=== PATIENT | female | born 1990 | race Caucasian/White ===

== ENCOUNTER → 2018-05-07 11:13 | Outpatient (CLI) | payer OTHER, SELFPAY ==
[2018-05-07 17:41] LABS: Urine N gonorrhoeae NOT DETECTED
[2018-05-07 17:47] LABS: Urine Chlamydia NOT DETECTED
[2018-05-08 18:27] LABS: Strep Grp B PCR NEG for Grp B Strep
== END ==
DX: Z34.03 Encounter for supervision of normal first pregnancy, third trimester (principal); Z3A.35 35 weeks gestation of pregnancy
CPT/HCPCS: 87491; 87591; 87653

== ENCOUNTER 2018-06-07 04:13 | Observation (INO) | payer OTHER, SELFPAY ==
--- NOTE | 2018-06-07 07:53 | PM.OBTRLD ---
Visit Information Visit Information Date of evaluation: 06/07/18 Primary OB Provider: Stephan Hinkle On-call OB Provider: Chayito Dominguez Reason for Evaluation: Yes rule out labor Vital Signs Vital Signs: 129/73, pulse 61, temperature 98? Evaluation Evaluation Baseline heart rate: 120 Variability: Moderate (11-25) monitor accelerations: Present monitor decelerations: Absent Contraction Frequency (minutes): 4 Uterine Contraction Intensity: Moderate Category of Tracing: I Cervical dilation (cm): 2 Cervical effacement (%): 80 station: -1 Diagnosis, Plan/Disposition Final Diagnosis (1) 40 weeks gestation of : Current Visit: No Status: Acute Plan/Disposition Plan: Patient had no change in her cervix despite walking and continued monitoring. She was discharged home with precautions.
== END 2018-06-07 08:00 | disposition home or self-care (01) ==
PROVIDERS: Admitting Provider Specialist; Visit Provider Specialist
DX: Z34.83 Encounter for supervision of other normal pregnancy, third trimester (principal); Z3A.40 40 weeks gestation of pregnancy
CPT/HCPCS: 59025; 59050; G0378; G0379

== ENCOUNTER 2018-06-08 00:31 | Inpatient (IN) | payer OTHER, SELFPAY ==
[2018-06-08] MEDS: LACTATED RINGERS 1,000 ML 100 ML IV (01:00)
[2018-06-08 01:30] LABS: Add Manual Diff / Slide Review NO; Basophils Percent Auto 0.8 % (0-2); Eosinophils Percent Auto 2.5 % (2-4); Hematocrit 37.9 % (36-46); Hemoglobin 13.2 g/dL (12.0-16.0); Lymphocytes Percent Auto 30.2 % (25-40); Mean Corpuscular HGB Conc 34.7 % (30-36); Mean Corpuscular Hemoglobin 30.6 PG (26-34); Mean Corpuscular Volume 88.2 fL (80-100); Monocytes Percent Auto 6.6 % (3-14); Neutrophils Absolute Auto 7700 /uL (3000-5900); Neutrophils Percent Auto 59.9 % (50-75); Platelet Count 215 X10^3/uL (150-400); Red Cell Distribution Width 12.7 % (11.6-14.8); White Blood Cell Count 12.9 X10^3/uL (4.5-11.0)
[2018-06-08 02:47] VITALS: BP 134/84
--- NOTE | 2018-06-08 07:31 | P.HPOB_ITS ---
OB HPI Date/Time Date of admission: 06/08/18 Date Patient Seen: 06/08/18 Time Patient Seen: 05:30 History of Present Condition Chief complaint: Observation of labor : 2 Para: 0 Estimated Date of Delivery: 06/05/18 Estimated Gestational Age (weeks): 40w3d Narrative: Diana Clarke is a 27 year old at 40w3d who presented in active labor with SROM at home. Pt reports having a gush of clear fluid at 11: 30pm the night before. She had been vicki for several days, but they increased significantly in intensity after that. She denies significant vaginal bleeding. History of Present care: good care Dating criteria: LMP confirmed by 1st trimester US Ultrasounds: normal mid trimester US Obstetrical complications: none Medical complications: none Preadmission Labs Blood type: O (+) positive -: Antibody screen: negative, GBS status: negative, HBsAG: negative, HIV: negative and RPR/VDLR: negative -: Chlamydia screen: detected (neg RUSS and neg 3rd tri screening) and Gonorrhea screen: not detected -: Rubella: immune and Varicella: immune HCT: 36.5 HCAB: negative Quad screen: Normal 1 hr GTT: 190 3 hr GTT: 1 hr (133), 2 hr (99) and 3 hr (128) Prior (ies) History: 2018 with SAB at 8wks Evaluation Evaluation Baseline heart rate: 120 Variability: Moderate (11-25) monitor accelerations: Present monitor decelerations: Early Contraction Frequency (minutes): 3 Uterine Contraction Intensity: Strong/Firm Category of Tracing: I Cervical dilation (cm): 4 Cervical effacement (%): 90 station: +1 Laboratory results: Laboratory Tests 06/08/18 06/08/18 01:11 01:11 WBC 12.9 H RBC 4.30 Hgb 13.2 Hct 37.9 MCV 88.2 MCH 30.6 MCHC 34.7 RDW 12.7 Plt Count 215 Neut % (Auto) 59.9 Lymph % (Auto) 30.2 [place] % (Auto) 6.6 Eos % (Auto) 2.5 Baso % (Auto) 0.8 Neut # (Auto) 7700 H Blood Type O Positive Antibody Screen Negative Meds Home Medications Medication Instructions Recorded Confirmed Type Biotin 100+10 06/08/18 History Biotin 100+10 100 mg/day DAILY 06/08/18 06/08/18 History cetirizine [Zyrtec] 10 mg PO DAILY 06/08/18 06/08/18 History vit D3-vit [id number] 06/08/18 History Allergies Allergy/AdvReac Type Severity Reaction Status Date / Time nickel Allergy Verified 06/07/18 05:28 Exam Vital Signs (past 8 hours): - 06/08/18 02:47 Blood Pressure 134/84 Narrative Exam Narrative: Gen: NAD, laying comfortably in bed, appears well CV: RRR, no murmurs Resp: clear to auscultation bilaterally Abd: soft, gravid, nondistended Ext: no edema Objective Labs Result Diagrams: 06/08/18 01:11 Labs: Laboratory Results - last 24 hr 06/08/18 06/08/18 01:11 01:11 WBC 12.9 H RBC 4.30 Hgb 13.2 Hct 37.9 MCV 88.2 MCH 30.6 MCHC 34.7 RDW 12.7 Plt Count 215 Neut % (Auto) 59.9 Lymph % (Auto) 30.2 [place] % (Auto) 6.6 Eos % (Auto) 2.5 Baso % (Auto) 0.8 Neut # (Auto) 7700 H Blood Type O Positive Antibody Screen Negative Assessment and Plan (1) 40 weeks gestation of : Current visit: Yes Status: Acute Plan: Plan: 27yo at 40w3d who presented in active labor with SROM. GBS negative, Rh positive. - Expectant management, anticipate - GBS negative, no prophylaxis - FHT reassuring, with intermittent early decels - Epidural for pain control
--- NOTE | 2018-06-08 18:21 | PM.OBPRVD ---
Delivery date: 06/08/18 Induction method: none Delivery monitor: external FHT Route of delivery: vacuum extraction Indication for instrumentation: nonreassuring FHR tracing Episiotomy description: None Laceration description: None Estimated blood loss (mL): 400 Anesthesia type: Epidural Complications: None Narrative: PROCEDURE: at 40w3d presented in active labor with SROM and clear fluid and was admitted to Labor and Delivery. The patient progressed through the 1st stage over 6.5 hours. Pain was controlled with an epidural. At the end of the first stage, the pt had repetitive prolonged decelerations to the 90s that improved with position changes and maternal oxygen. The patient progressed through the 2nd stage over 1hr 20 minutes. Due to recurrent prolonged decelerations to the 70s at the end of the 2nd stage, with slowing return to baseline, the decision was made to proceed with a vacuum-assisted vaginal delivery. Patient was evaluated and noted to have adequate pain control. Patient counseled on risks/benefits/alternatives of vacuum assisted delivery. Risks were discussed and they included but were not limited to a need for an episiotomy, pressure knight on the baby, lacerations to the baby's scalp/face, serious damage including skull fracture, the need to proceed with an abdominal procedure, , paralysis of the baby's arms and/or legs, neurological impairment of the baby. Alternatives would include CS or further observation depending on status. Questions were answered and the patient verbalized an understanding and decided to proceed. The baby was at +3 station. Cervix completely dilated and maternal bladder emptied. Maternal pelvis was noted to be adequate. Vacuum cup of the [employer] applied to the flexion point without difficulty and during contractions, pressure applied between 400-600 mmHg as indicated in the green zone of the pressure gauge. Infant delivered after 2 pulls with 0 pop-offs over an intact perineum. The anterior shoulder and remainder of the was delivered without difficulty. Immediately after the baby delivered, multiple large clots were produced, indicating a likely partial placental abruption. There was no nuchal cord present. was placed on maternal abdomen with spontaneous crying. Cord clamped and cut after it stopped pulsing. Infant was examined and no evidence of injury noted. APGARs of 8/9. There were no lacerations. Delivery time: 7:15am PREPROCEDURE DIAGNOSIS: Intrauterine at 40w3d GBS negative RH positive POSTPROCEDURE DIAGNOSIS: Intrauterine at 40w3d, delivered Same as preprocedure Nonreassuring heart tones Vacuum-assisted Partial placental abruption ROM APPEARANCE: Clear BABY A WEIGHT: 7lb0.31oz BABY A NUCHAL CORD: None PLACENTA DELIVERY TIME: 7:17 PLACENTA APPEARANCE: Intact [place] Baby 1: gender: Male Presentation: vertex position: Right Occiput Anterior Placenta delivery description: Spontaneous cord vessel description: 3 Vessels score (1 min): 8 score (5 min): 9 Plan for aftercare: Normal care support
[2018-06-08] MEDS: IBUPROFEN 600 MG TABLET PO (19:06)
[2018-06-08 20:15] VITALS: TEMP 36.8
[2018-06-09 04:47] VITALS: TEMP 37
[2018-06-09] MEDS: IBUPROFEN 600 MG TABLET PO (04:47)
[2018-06-09 05:10] LABS: Hematocrit 34.9 % (36-46); Hemoglobin 12.1 g/dL (12.0-16.0)
[2018-06-09] MEDS: PRENATAL VIT,CALC/IRON/FOLIC 1 TABLET 1 TAB PO (10:06)
[2018-06-09] MEDS: DOCUSATE 250 MG CAPSULE PO (10:07)
--- NOTE | 2018-06-09 11:24 | P.DS_ITS ---
Discharge Providers Date of admission: 06/08/18 00:31 Primary care physician: Stephan Hinkle MD Consults: 06/08/18 07:48 Consult to Cogeneration Operator Routine Comment: Discharge provider: Lori Oropeza MD Discharge Date: 06/09/18 Summary Date Patient Seen: 06/09/18 Time Patient Seen: 11:00 Hospital Course: The pt presented in active labor with SROM. Her pain was controlled with an epidural. The pt had repetitive deep variable decelerations nearing the end of her labor, that initially improved with position changes. Due to progressively slowing return to baseline, the decision was made to have a vacuum-assisted delivery when she was at +3 station. The pt was delivered successfully without complications with vacuum assistance. There was no injury noted to the baby. There were no lacerations. The pt tolerated delivery well. , there were no complications. At the time of discharge she was voiding, ambulating, and passing flatus without difficulty. Her lochia was decreasing appropriately. She was without complications. Her pain was adequately controlled. She will be discharged home to f/u with Dr Hinkle in 6 weeks. She likely desires OCPs for control. Peripartum Data Infant Delivery Method: Assisted Delivery Laceration description: None Episiotomy description: None Procedures: Vacuum-assisted vaginal delivery complications: none Discharge Diagnosis (1) 40 weeks gestation of : Status: Acute (2) Status post vacuum-assisted vaginal delivery: Status: Acute Status at Discharge Functional status at discharge: independent ambulation Overall status at discharge: patient is progressing back to baseline Time Spent with Patient Total time spent providing and/or coordinating discharge services: Greater than 30 minutes Objective Labs Result Diagrams: 06/09/18 04:47 Labs: Laboratory Results - last 24 hr 06/09/18 04:47 Hgb 12.1 Hct 34.9 L Discharge Plan Discharge Plan Patient Disposition: Home Discharge Med Rec/Prescriptions Prescriptions: New acetaminophen 325 mg Tablet 650 mg PO Q6HR PRN (Reason: Pain, Mild (1-3)) Qty: 30 RF: 0 benzocaine-menthol [Dermoplast (with menthol)] 20-0.5 % Aerosol 1 spray Topical Q1HR PRN (Reason: perineal pain) Qty: 15 RF: 0 ibuprofen 600 mg Tablet 600 mg PO Q6HR PRN (Reason: Pain, Mild (1-3)) Qty: 30 RF: 0 docusate sodium 250 mg Capsule 250 mg PO DAILY Qty: 30 RF: 0 lanolin [Ayg-Y-Wearcq] Cream 1 applic Topical PRN PRN (Reason: Tenderness) Qty: 15 RF: 0 vit,[id number] [Prenatabs Rx] 29 mg iron- 1 mg Tablet 1 tab PO DAILY Qty: 30 RF: 0 Continue Biotin 100+10 100 units 100 mg/day DAILY RF: 0 Biotin 100+10 RF: 0 vit D3-vit [id number]-kvhm RF: 0 cetirizine [Zyrtec] 10 mg Capsule 10 mg PO DAILY RF: 0 Follow up/Referrals: Stephan Hinkle MD [Primary Care Provider] - 6 Weeks (Pt will call for appointment) Provider Discharge Instructions Diet: Diet as Tolerated and Regular Activity: No intercourse for 6 weeks Skin/Wound/Dressing Care Report to your healthcare provider any signs of infection, such as:: chills, fever, increased pain and unusual drainage Visit Report/Discharge Packet Instructions: DI for Heart Failure, DI for Labor and Delivery, Vaginal Stand Alone Forms: Discharge: Care Visit Report Forms: Congestive Heart Failure, Stroke Signs & Symptoms Discharge Data Primary Care Provider: Stephan Hinkle Attending Provider: Lori Oropeza Date/Time: 06/08/18 00:31
[2018-06-09 11:34] VITALS: BP 122/76; TEMP 36.8
== END 2018-06-09 12:10 | disposition home or self-care (01) | DRG 807 ==
PROVIDERS: Admitting Provider Family Medicine; Visit Provider Family Medicine
DX: O45.93 Premature separation of placenta, unspecified, third trimester (principal); Z37.0 Single live birth; Z3A.40 40 weeks gestation of pregnancy; O76 Abnormality in fetal heart rate and rhythm complicating labor and delivery
CPT/HCPCS: 01967; 36415; 59050; 59410; 84112; 85014; 85018; 85025; 86850; 86900; 86901; G0379

== ENCOUNTER → 2019-10-10 12:30 | Outpatient (CLI) | payer OTHER, SELFPAY ==
[2019-10-10 14:45] LABS: Hematocrit 39.3 % (36-46); Hemoglobin 12.8 g/dL (12.0-16.0)
[2019-10-10 15:19] LABS: GTT (PREG) 1 Hour PP 50gm Dose 122 mg/dL (76-139)
== END ==
PROVIDERS: PCP General Practice
DX: Z34.82 Encounter for supervision of other normal pregnancy, second trimester (principal); Z3A.26 26 weeks gestation of pregnancy
CPT/HCPCS: 36415; 82950; 85014; 85018

== ENCOUNTER → 2019-12-12 10:54 | Outpatient (CLI) | payer OTHER, SELFPAY ==
[2019-12-13 08:59] LABS: Strep Grp B PCR POS for Grp B Strep
== END ==
PROVIDERS: PCP General Practice
DX: Z34.83 Encounter for supervision of other normal pregnancy, third trimester (principal); Z3A.36 36 weeks gestation of pregnancy
CPT/HCPCS: 87653

== ENCOUNTER 2020-01-13 04:09 | Inpatient (IN) | payer OTHER, SELFPAY ==
[2020-01-13] MEDS: PENICILLIN G POTASSIUM 5,000,000 UNIT in DEXTROSE 5% IN WATER 250 ML IV (05:34)
[2020-01-13] MEDS: LACTATED RINGERS 1,000 ML 100 ML IV ×2 (05:34→09:25)
[2020-01-13 06:51] LABS: Add Manual Diff / Slide Review NO; Basophils Absolute Auto 100 /uL (0-100); Basophils Percent Auto 0.3 % (0-2); Eosinophils Absolute Auto 100 /uL (0-450); Eosinophils Percent Auto 0.8 % (2-4); Hematocrit 39.9 % (36-46); Hemoglobin 13.5 g/dL (12.0-16.0); Lymphocytes Absolute Auto 3000 /uL (1100-4500); Lymphocytes Percent Auto 16.5 % (25-40); Mean Corpuscular HGB Conc 33.8 % (30-36); Mean Corpuscular Hemoglobin 30.3 PG (26-34); Mean Corpuscular Volume 89.7 fL (80-100); Monocytes Absolute Auto 900 /uL (0-900); Monocytes Percent Auto 5.1 % (3-14); Neutrophils Absolute Auto 13900 /uL (1500-7000); Neutrophils Percent Auto 77.3 % (50-75); Platelet Count 224 X10^3/uL (150-400); Red Blood Cell Count 4.44 X10^6/uL (4.0-5.2); Red Cell Distribution Width 12.9 % (11.6-14.8); White Blood Cell Count 17.9 X10^3/uL (4.5-11.0)
[2020-01-13 07:16] LABS: COVID19 -Nasal RAPID Negative (Negative)
--- NOTE | 2020-01-13 08:27 | P.HPOB_ITS ---
OB HPI Date/Time Date of admission: 01/13/20 Date Patient Seen: 01/13/20 Time Patient Seen: 08:28 History of Present Condition Chief complaint: Evaluation of Labor : 2 Para: 1 Estimated Date of Delivery: 01/08/20 Estimated Gestational Age (weeks): 40 09/12 Narrative: Diana Clarke is a 29 year old female two para one who presented in active labor. Her YESENIA was January 07 she was scheduled for induction on the 12 January. Her antepartum course was uneventful. History of Present care: good care Dating criteria: LMP confirmed by 1st trimester US Ultrasounds: normal 1st trimester US and normal mid trimester US Obstetrical complications: other (Group B strep positive) Medical complications: none Narrative: Uneventful with group B strep positive Evaluation Evaluation Laboratory results: Laboratory Tests 01/13/20 01/13/20 01/13/20 06:00 06:40 06:40 WBC 17.9 H RBC 4.44 Hgb 13.5 Hct 39.9 MCV 89.7 MCH 30.3 MCHC 33.8 RDW 12.9 Plt Count 224 Neut % (Auto) 77.3 H Lymph % (Auto) 16.5 L [place]mer[place] % (Auto) 5.1 Eos % (Auto) 0.8 L Baso % (Auto) 0.3 Neut # (Auto) 40275 H Lymph # (Auto) 3000 [place] # (Auto) 900 Eos # (Auto) 100 Baso # (Auto) 100 COVID-19 PCR Negative Blood Type O Positive Antibody Screen Negative PFSH Medical History (Updated 11/19/19 @ 20:16 by Tamera Baird) Allergic rhinitis (Acute) Chicken pox (Resolved ~1999) Chlamydia (Acute ~2016) Dietary calcium deficiency (Acute) Disorder of refraction (Acute) Dry skin (Acute) Eczema (Chronic ~2018) Frequent UTI (Acute) GERD (gastroesophageal reflux disease) (Acute) Hearing loss (Acute) Knee pain (Acute) Low back pain (Acute) Skin eruption (Acute) Surgical History (Updated 10/06/19 @ 15:23 by Linda Friedman MA) H/O dilation and curettage (Acute ~07/2017) Hx of tonsillectomy (Acute ~2003) [place] teeth extracted (Acute ~2005) Family History (Updated 11/19/19 @ 20:19 by Tamera Baird) Grandfather Myocardial infarction Stroke Grandmother Myocardial infarction Stroke Breast cancer Father Hypertension Hyperlipidemia Mother Stroke Sister Mental health problem Grandfather Cancer Grandmother Breast cancer Hypertension History of kidney problems Social History marital status: (Ben Clarke [phone]) number of children: 1 household members: spouse and children lives independently: Yes education level: college (Some college) occupational status: employed ([employer]) current occupational exposures/hazards: Yes (Hazardous materials, heavy liftin g/twisting, Loud noises, repetative motion) special nataliia needs: No do you feel safe at home: Yes Smoking Status: Former smoker alcohol intake: former (Socially) substance use type: does not use well-balanced diet: daily or most days frequency: 3-4 times per week duration: 45-60 minutes/day Meds Home Medications and Allergies Home Medications Medication Instructions Recorded Confirmed Type Biotin 100+10 100 mg/day DAILY 06/08/18 01/13/20 History Zyrtec 10 mg PO DAILY 06/08/18 01/13/20 History vit,[id number] 1 tab PO DAILY #30 tab 06/09/18 01/13/20 Rx [Prenatabs Rx] cholecalciferol (vitamin D3) 25 1,000 unit PO DAILY 10/06/19 01/13/20 History mcg (1,000 unit) capsule omega-3 fatty acids 1 PO 10/06/19 01/08/20 History ondansetron 4 mg oral soluble film 4 mg PO Q8H 10/06/19 01/13/20 History rizatriptan 5 mg disintegrating 5 mg PO ONCE 10/06/19 01/13/20 History tablet Double Electric breast Pump and #1 each 10/15/19 01/13/20 Rx Supplies Allergies Allergy/AdvReac Type Severity Reaction Status Date / Time nickel Allergy Verified 01/08/20 09:22 Review of Systems Review of Systems ROS: Yes All systems reviewed with the patient and are negative except as otherwise documented Exam Const General: cooperative and healthy appearing [facility] Head: normal to inspection Ears: hearing grossly normal bilaterally Nose: external nose normal Face and sinus: normal facial exam Mouth: oral mucosae normal, lip normal, tongue normal and moist mucous membranes Teeth and gingiva: dentition normal Throat: posterior oropharynx normal Eyes General: appearance normal, both eyes and all related structures Neck Neck: normal visual inspection and full ROM Chest Chest: normal inspection of the chest and normal palpation of entire chest wall Breast inspection: normal inspection of the breasts and normal inspection of the axillae Breast Palpation: normal palpation of the breasts and normal palpation of the axillae Resp Effort & Inspection: normal respiratory effort Auscultation: clear to auscultation bilaterally Cardio Palpation: normal PMI Rate: regular rate Rhythm: regular rhythm Heart Sounds: S1 normal and S2 normal GI Inspection: normal to inspection Palpation: soft and no hepatosplenomegaly Percussion: normal to percussion Auscultation: normal bowel sounds External Female Exam: normal external appearance and normal appearance of the urethra Speculum Exam - Vagina: normal appearance of the vagina and normal vaginal discharge OB/External & Speculum: external exam normal Manual OB Exam: dilated 6, effaced fully and station 0 Uterus Location (Fundal Height): 38 Estimated Weight (lbs): 8 Back/Spine/Pelvis Thoracic/Lumbar Spine: thoracic and lumbar spine normal to inspection Skin General: no rashes or lesions noted Neuro General: patient alert, patient oriented x3, tone normal and moves all extremities Cognition: normal cognition Speech: speech normal Gait: normal gait Motor: muscle tone normal throughout Sensory Exam: no sensory deficits noted Extrem General: normal to inspection and normal exam except as noted Psych Appearance: grossly normal and well kempt Mental Status: mental status grossly normal Speech and Movement: speech and movement normal Objective Labs Result Diagrams: 01/13/20 06:40 Labs: Laboratory Results - last 24 hr 01/13/20 01/13/20 01/13/20 06:00 06:40 06:40 WBC 17.9 H RBC 4.44 Hgb 13.5 Hct 39.9 MCV 89.7 MCH 30.3 MCHC 33.8 RDW 12.9 Plt Count 224 Neut % (Auto) 77.3 H Lymph % (Auto) 16.5 L [place]mer[place] % (Auto) 5.1 Eos % (Auto) 0.8 L Baso % (Auto) 0.3 Neut # (Auto) 58118 H Lymph # (Auto) 3000 [place]mer[place] # (Auto) 900 Eos # (Auto) 100 Baso # (Auto) 100 COVID-19 PCR Negative Blood Type O Positive Antibody Screen Negative Assessment and Plan Assessment and Plan Assessment and Plan narrative: Term intrauterine Active labor Group B strep positive Delivery
[2020-01-13] MEDS: ONDANSETRON 4 MG/2 ML INJ IV (09:00)
[2020-01-13] MEDS: PENICILLIN G POTASSIUM 3,000,000 UNIT/50 ML FROZ.PIGGY 100 UNIT IV (09:26)
--- NOTE | 2020-01-13 11:30 | PM.OBPRVD ---
Labor & Delivery Delivery date: 01/13/20 Intrapartal events: None Cervical ripening method: none Induction method: none Delivery augmentation: rupture of membranes Delivery monitor: external FHT and external uterine Route of delivery: L&D Laceration Description: None Estimated blood loss (mL): 200 Anesthesia type: Epidural Complications: None Narrative: Patient presented in active labor 3-4 cm dilated. Epidural anesthesia was placed. She made rapid progress to complete after rupture membranes. Pushed and delivered spontaneously live-born female with scores of eight at 1 minutes and nine at 5 minutes in good condition. There was no episiotomy or tears there are no cervical or vaginal lacerations. Placenta delivered spontaneously. Cord had three vessels. Estimated blood loss was 200 cc [place] Baby 1: Presentation: vertex score (1 min): 8 score (5 min): 9 Plan for aftercare: Routine
[2020-01-13] MEDS: IBUPROFEN 600 MG TABLET PO ×2 (16:30→22:17)
[2020-01-13] MEDS: DERMOPLAST SPRAY 20% 60 ML 1 SPRAY TOP (17:11)
[2020-01-13] MEDS: LANOLIN OINT 7 GM 1 APPLIC TOP (17:12)
[2020-01-14] MEDS: IBUPROFEN 600 MG TABLET PO (04:24)
[2020-01-14 06:31] LABS: Hematocrit 39.3 % (36-46)
--- NOTE | 2020-01-14 08:29 | P.DS_ITS ---
Discharge Providers Provider Date of admission: 01/13/20 04:09 Discharge Date: 01/14/20 Primary care physician: Haroon Zamarripa MD Consults: 01/14/20 11:32 Consult to Personnel Manager Routine Comment: Discharge provider: Stephan Hinkle MD Summary Hospital Course Date Patient Seen: 01/14/20 Time Patient Seen: 08:29 Procedures: Artificial rupture membranes Epidural anesthesia Spontaneous vaginal delivery. Hospital Course: The patient was at term and scheduled for induction. Patient however presented in active labor at 4 cm. Epidural was placed. Membranes are ruptured. Patient was GBS positive and had received two doses of antibiotics before membrane rupture. Patient had a rapid labor to complete pushed and delivered spontaneously a 7 lb live-born female with scores of eight at 1 minutes and nine at 5 minutes. There were no perineal lacerations. Estimated blood loss was 200 cc. Post delivery the patient did well. She remained afebrile with stable vital signs. She was progressively ambulated. Was taking p.o. well. She was voiding and good volumes. Peripartum Data Delivery Method: Natural Vaginal Laceration description: None complications: none Status at Discharge Cognitive/behavioral status at discharge: oriented Functional status at discharge: independent ambulation Overall status at discharge: patient is progressing back to baseline Time Spent with Patient Time attestation: Total time spent providing and/or coordinating discharge s ervices: Time spent: Less than 30 minutes Objective Labs Result Diagrams: 01/14/20 06:25 Labs: Laboratory Results - last 24 hr 01/14/20 06:25 Hgb 13.0 Hct 39.3 Exam Narrative Exam Narrative: Fundus U minus four Lochia is Perineum without ecchymoses Discharge Plan Discharge Plan Patient Disposition: Home Discharge orders & Medications Prescriptions: New oxycodone 5 mg Tablet 5 mg PO Q4HR PRN (Reason: Pain, Moderate (4-6)) Qty: 10 RF: 0 docusate sodium [DOK] 100 mg Capsule 100 mg PO DAILY Qty: 14 RF: 0 ibuprofen 600 mg Tablet 600 mg PO Q6HR PRN (Reason: Pain, Mild (1-3)) Qty: 20 RF: 0 Dermoplast (with menthol) 20-0.5 % Aerosol 1 spray topical Q1HR PRN (Reason: perineal pain) Qty: 1 RF: 0 Tfk-O-Nropeq Cream 1 applic topical PRN PRN (Reason: Tenderness) Qty: 1 RF: 0 Continued omega-3 fatty acids 1 PO RF: 0 cholecalciferol (vitamin D3) 25 mcg (1,000 unit) capsule 1,000 unit PO DAILY RF: 0 Biotin 100+10 100 units 100 mg/day DAILY RF: 0 Zyrtec 10 mg Capsule 10 mg PO DAILY RF: 0 Discontinued ondansetron 4 mg film 4 mg PO Q8H RF: 0 rizatriptan 5 mg tablet,disintegrating 5 mg PO ONCE RF: 0 Prenatabs Rx 29 mg iron- 1 mg Tablet 1 tab PO DAILY Qty: 30 RF: 0 No Action (DME) Double Electric breast Pump and Supplies See Rx Instructions .ROUTE .MEDSUPPLY Qty: 1 RF: 0 Follow up/Referrals: Haroon Zamarripa MD [Primary Care Provider] - Discharge Health Status Multidrug resistant organism: No MDRO Diet/Activity/Treatments Diet: Diet as Tolerated Activity: Up ad deion Skin/Wound/Dressing Care Report to your healthcare provider any signs of infection, such as:: increased pain, unusual drainage and unusual redness Visit Report/Discharge Packet Instructions: DI for Prescription Opioid Use Discharge Data Primary Care Provider: Haroon Zamarripa
[2020-01-14 09:40] VITALS: BP 112/71; PULSE 59; RESP 16; TEMP 37.3
[2020-01-14] MEDS: FERROUS GLUCONATE 324 MG TABLET PO (10:01)
[2020-01-14] MEDS: DOCUSATE 100 MG CAPSULE PO (10:01)
== END 2020-01-14 12:22 | disposition home or self-care (01) | DRG 807 ==
PROVIDERS: Admitting Provider Obstetrics & Gynecology; PCP General Practice; Referring Provider Obstetrics & Gynecology; Visit Provider Obstetrics & Gynecology
DX: O99.824 Streptococcus B carrier state complicating childbirth (principal); Z37.0 Single live birth; Z3A.40 40 weeks gestation of pregnancy; Z11.59 Encounter for screening for other viral diseases
CPT/HCPCS: 01967; 36415; 59050; 59410; 85014; 85018; 85025; 86850; 86900; 86901; 87635; G0379; J2405; J2540